=== PATIENT | male | born 1960 | race Hispanic/Latino ===

== ENCOUNTER 2016-07-18 21:39 | Emergency (ER) | payer OTHER ==
[2016-07-18 22:01] VITALS: TEMP 98.7
[2016-07-18 22:03] VITALS: BMI 25.7
--- NOTE | 2016-07-18 22:12 | ED PDOC ---
Arrival/HPI - General Chief Complaint: Respiratory Distress Time Seen by Provider: 07/18/16 22:02 Historian: Patient, EMS - History of Present Illness Narrative History of Present Illness (Text): 07/18/16 21:40 Glenn Kelley is a 56 year old male who presents to the Emergency department brought in by EMS status post respiratory arrest prior to arrival. As per EMS, patient was found lying on the floor unresponsive in the middle of a store aisle. EMS report patient was agonal/cyanotic/pulseless. CPR was commenced and patient subsequently placed on BVM. EMS state patient improved with BVM oxygenation. has a history of substance and was given intranasal Narcan in the field with response. Patient on arrival to the Emergency department is awake, alert but slightly agitated. Patient denies any chest pain, nausea, vomiting, diarrhea, urinary symptoms, headache, dizziness, or any other complaints. Time/Duration: Prior to Arrival Symptom Onset: Sudden Symptom Course: Improving Activities at Onset: Light Context: Other (Pharmacy) Past Medical History - Provider Review Nursing Documentation Reviewed: Yes - Psychiatric Hx Substance Use: (unk) Family/Social History - Physician Review Nursing Documentation Reviewed: Yes Family/Social History: No Known Family HX Smoking Status: unk Hx Alcohol Use: (unk) Hx Substance Use: (unk) Allergies/Home Meds Allergies/Adverse Reactions: Allergies Sulfa (Sulfonamide Antibiotics) Allergy (Verified 07/18/16 22:03) ANGIOEDEMA Review of Systems - Physician Review All systems were reviewed & negative as marked: Yes - Review of Systems Constitutional: Normal Eyes: Normal ENT: Normal Cardiovascular: Normal. absent: Chest Pain Gastrointestinal: Normal. absent: Abdominal Pain, Diarrhea, Nausea, Vomiting Genitourinary Male: Normal. absent: Dysuria, Frequency, Hematuria, Urinary Output Changes Musculoskeletal: Normal. absent: Back Pain, Neck Pain Skin: Normal. absent: Rash Neurological: Normal. absent: Headache, Dizziness Endocrine: Normal Hemo/Lymphatic: Normal Psychiatric: Normal Physical Exam Vital Signs Reviewed: Yes Vital Signs Temp Pulse Resp BP Pulse Ox 07/18/16 23:20 92 H 16 115/66 90 L 07/18/16 21:54 16 94 L 07/18/16 21:52 98.7 F 118 H 16 123/82 94 L Temperature: Afebrile Blood Pressure: Normal Pulse: Regular Respiratory Rate: Normal Appearance: Positive for: Well-Appearing, Non-Toxic, Comfortable Pain Distress: None Mental Status: Positive for: Alert and Oriented X 3 - Systems Exam Head: Present: Atraumatic, Normocephalic Pupils: Present: Pinpoint Extroacular Muscles: Present: EOMI Conjunctiva: Present: Normal Mouth: Present: Moist Mucous Membranes Neck: Present: Normal Range of Motion Respiratory/Chest: Present: Clear to Auscultation, Good Air Exchange. No: Respiratory Distress, Accessory Muscle Use Cardiovascular: Present: Regular Rate and Rhythm, Normal S1, S2. No: Murmurs Abdomen: Present: Normal Bowel Sounds. No: Tenderness, Distention, Peritoneal Signs Upper Extremity: Present: Normal Inspection. No: Cyanosis, Edema Lower Extremity: Present: Normal Inspection. No: Edema Neurological: Present: GCS=15, CN II-XII Intact, Speech Normal Skin: Present: Warm, Dry, Normal Color. No: Rashes Psychiatric: Present: Alert, Oriented x 3, Normal Insight, Normal Concentration , Agitated (Slightly agitated) Medical Decision Making ED Course and Treatment: 07/18/16 21:40 Impression: 56 year old male brought in by EMS s/p respiratory arrest. Pt awake, alert, and slightly agitated on arrival. Plan: -- Chest X-ray -- Labs, cardiac enzymes, alcohol level -- Urinalysis, urine drug screen -- Reassess and disposition Prior Visits: Notes and results from previous visits were reviewed. Progress Notes: Reviewed EKG, sinus tachycardia at 113 bpm. Non-specific ST/T wave changes. 07/18/16 23:15 Reviewed radiology, Chest X-ray shows no acute process. 07/19/16 01:[address] Gonzalez, remote sensing specialist, who is aware and agrees with plan. Accepts pt in to hospitalist service. Pt will go to Telemetry observation for respiratory arrest, alcohol intoxication, and opiate overdose. 07/19/16 01:[address] Fuchs, medical assistant float educational resource center teacher, who is aware and agrees with plan. - Lab Interpretations Lab Results: 07/18/16 22:27 07/18/16 22:27 Lab Results 07/19/16 01:15: pCO2 50 H, pO2 60.0 L, HCO3 24.0, ABG pH 7.29 L, ABG Total CO2 25.5, ABG O2 Saturation 92.4 L, ABG Base Excess -3.1 L, ABG Potassium 4.2, Glucose 93, Lactate 1.3, FiO2 21.0, Sodium 141.0, Chloride 113.0 H, Arterial Blood Potassium 4.2 07/18/16 22:27: Alcohol, Quantitative 161 H 07/18/16 22:27: Salicylates < 1 L, Acetaminophen < 10.0 L 07/18/16 22:27: Sodium 142, Potassium 3.3 L, Chloride 104, Carbon Dioxide 23, Anion Gap 18, BUN 14, Creatinine 0.9, Est GFR ( Amer) > 60, Est GFR (Non- Af Amer) > 60, Random Glucose 144 H, Calcium 8.7, Total Bilirubin 0.8, AST 108 H , ALT 81 H, Alkaline Phosphatase 108, Lactate Dehydrogenase 939 H, Total Creatine Kinase 428 H, CK-MB (CK-2) 2.6, CK-MB (CK-2) % Cancelled, Troponin I < 0.01, Total Protein 8.1, Albumin 4.5, Globulin 3.7, Albumin/Globulin Ratio 1.2 07/18/16 22:27: WBC 15.5 H, RBC 4.23, Hgb 13.5 L, Hct 39.7 L, MCV 93.9, MCH 31.9 , MCHC 34.0, RDW 16.1 H, Plt Count 356, MPV 9.3, Gran % 54.1, Lymph % (Auto) 36.1 H, [place] % (Auto) 8.4 H, Eos % (Auto) 1.1 L, Baso % (Auto) 0.3, Gran # 8.38 H, Lymph # 5.6 H, [place] # 1.3 H, Eos # 0.2, Baso # 0.05 I have reviewed the lab results: Yes - RAD Interpretation Radiology Orders: 07/18/16 22:27 CHEST PORTABLE [RAD] Stat Engineer Operations And Maintenance: ED Physician - EKG Interpretation Interpreted by ED Physician: Yes Type: 12 lead EKG - Medication Orders Current Medication Orders: Multivitamins/Vitamin C 10 ml/Thiamine HCl 100 mg/ Folic Acid 1 mg/ Sodium Chloride 1,011.2 mls @ 1,000 mls/hr IV .[id number] ONE Stop: 07/19/16 02:31 - Scribe Statement The provider has reviewed the documentation as recorded by the Yeseniaibsusanne Craig All medical record entries made by the Yeseniaibsusanne were at my direction and personally dictated by me. I have reviewed the chart and agree that the record accurately reflects my personal performance of the history, physical exam, medical decision making, and the department course for this patient. I have also personally directed, reviewed, and agree with the discharge instructions and disposition. Disposition/Present on Arrival - Present on Arrival Any Indicators Present on Arrival: No History of DVT/PE: No History of Uncontrolled Diabetes: No Urinary Catheter: No History of Decub. Ulcer: No History Surgical Site Infection Following: None - Disposition Have Diagnosis and Disposition been Completed?: Yes Diagnosis: Drug overdose, Respiratory arrest Disposition: HOSPITALIZED Disposition Time: 02:12 Patient Plan: Admission Condition: STABLE
[2016-07-18 23:24] LABS: BASO # 0.05 K/mm3 (0.0-2.0); BASO % 0.3 % (0.0-3.0); EOS # 0.2 (0.0-0.7); EOS % 1.1 % (1.5-5.0); GRAN # 8.38 (1.4-6.5); GRAN % 54.1 % (50.0-68.0); HEMATOCRIT 39.7 % (42.0-52.0); LYMPH # 5.6 (1.2-3.4); LYMPH % 36.1 % (22.0-35.0); MEAN CELL VOLUME 93.9 fL (80.0-105.0); MEAN CORPUSCULAR HEMOGLOBIN 31.9 pg (25.0-35.0); MEAN PLATELET VOLUME 9.3 fl (7.0-11.0); MONO # 1.3 (0.1-0.6); MONO % 8.4 % (1.0-6.0); PLATELET COUNT 356 10^3/uL (120.0-450.0); RED CELL DISTRIBUTION WIDTH 16.1 % (11.5-14.5); WHITE BLOOD COUNT 15.5 10^3/ul (4.5-11.0)
[2016-07-18 23:39] LABS: ALB/GLOB RATIO 1.2 (1.1-1.8); ALKALINE PHOSPHATASE 108 U/L (38-133); ALT/SGPT 81 U/L (7-56); AST/SGOT 108 U/L (15-59); BILIRUBIN,TOTAL 0.8 mg/dL (0.2-1.3); BLOOD UREA NITROGEN 14 mg/dL (7-21); CALCIUM 8.7 mg/dL (8.4-10.5); CARBON DIOXIDE 23 mmol/L (21-33); CHLORIDE 104 mmol/L (98-107); GFR AFRICAN-AMERICAN > 60; GLUCOSE,RANDOM 144 mg/dL (70-110); POTASSIUM 3.3 mmol/L (3.6-5.0); SODIUM 142 mmol/L (132-148); TOTAL PROTEIN 8.1 g/dL (5.8-8.3)
[2016-07-19 00:01] LABS: TROPONIN I < 0.01 ng/mL
[2016-07-19 00:27] LABS: ADD MANUAL DIFF? NO
[2016-07-19] MEDS ORDERED: Multivitamin (MVI) 10 ML, Thiamine 100 MG, Folic Acid 1 MG in Sodium Chloride 0.9% 1,00... IV ONE (01:31)
[2016-07-19 01:33] LABS: ARTERIAL BLOOD GAS PH 7.29 (7.35-7.45)
[2016-07-19] MEDS ORDERED: Albuterol-Ipratrop 3 mg / 0.5 (3 ml) UD IH PRN (02:18)
[2016-07-19 02:29] LABS: MAGNESIUM 2.4 mg/dL (1.7-2.2); PHOSPHOROUS 5.3 mg/dL (2.5-4.5)
--- NOTE | 2016-07-19 02:40 | CP.PCM.HP ---
Addendum entered and electronically signed by Sujey Fuchs DO 07/19/16 02:46: Mg 5.3 Phos 2.4 Continue IVF Will monitor Original Note: <Sujey Fuchs - Last Filed: 07/19/16 02:42> History of Present Illness - History of Present Illness History of Present Illness: Internal medicine H & P for Hospitalist Service- Sujey Fuchs, PGY-1 Pt S & E at bedside. 56M w/PMH sig for Seasonal allergies, hx bronchitis, herniated cervical discs, suicide attempt (11/2015) admitted s/p respiratory arrest due to heroin overdose. Pt reports last thing he remembers is he was going to [place] to get some heroin, [place] 10 bags of [place] Pt does not know how he got to hospital. As per EMS- pt was found in the middle of an aisle in a pharmacy with agonal breathing/unresponsive/cyanotic/pulseless- CPR initiated with rescue breathing. Was given intranasal narcan with response. Pt taken to ED via EMS. Pt reports that he recently lost his gf to heroin; has suicide attempt last November that put him in the hospital for 6 wks. Admits to wt loss of unknown amount, sinus congestion, cough, night sweats (chronic), constipation, paresthesias of B/L LE. Denies N/V/F/C, SOB, CP, abdominal pain, changes in vision, changes in hearing, diarrhea, changes in urination, headache , back pain. PMH: Seasonal allergies, hx bronchitis, herniated cervical discs, suicide attempt (11/2015), GERD, substance abuse PSH: Denies All: Seasonal, sulfa SH: Admits to drinking 1/2 pint of vodka today, prior hx of ETOH abuse - quit 3 yrs ago, admits to tobacco use- 1-1.5 ppd x 40 yrs, admits to heroin abuse- took 10 bags today; girl friend recently of heroin OD; wears reading glasses PMD: [place] Home meds: Wellbutrin, Gabapentin FH: Mother's side with various cancers Present on Admission - Present on Admission Any Indicators Present on Admission: No History of DVT/PE: No History of Uncontrolled Diabetes: No Urinary Catheter: No Decubitus Ulcer Present: No Review of Systems - Review of Systems All systems: reviewed and no additional remarkable complaints except - Constitutional Constitutional: Night Sweats. absent: Chills, Fever, Headache - EENT Eyes: absent: Blurred Vision, Change in Vision Ears: absent: Decreased Hearing Nose/Mouth/Throat: Post Nasal Drip, Sinus Pressure. absent: Nasal Congestion, Sore Throat - Cardiovascular Cardiovascular: absent: Chest Pain, Leg Edema, Palpitations, Pedal Edema - Respiratory Respiratory: Cough, Wheezing (occasional- due to allergies) - Gastrointestinal Gastrointestinal: Constipation. absent: Abdominal Pain, Diarrhea, Nausea, Vomiting - Genitourinary Genitourinary: absent: Change in Urinary Stream, Dysuria, Urinary Frequency - Musculoskeletal Musculoskeletal: Neck Pain, Numbness (B/L LE), Tingling (B/L LE) - Integumentary Integumentary: absent: Rash - Psychiatric Psychiatric: Suicidal Ideation Past Patient History - Past Social History Smoking Status: unk - PSYCHIATRIC Hx Substance Use: (unk) Meds Allergies/Adverse Reactions: Allergies Allergy/AdvReac Type Severity Reaction Status Date / Time Sulfa (Sulfonamide Allergy ANGIOEDEMA Verified 07/18/16 22:03 Antibiotics) Physical Exam - Constitutional Appears: Non-toxic, No Acute Distress - Head Exam Head Exam: ATRAUMATIC, NORMAL INSPECTION, NORMOCEPHALIC - Eye Exam Eye Exam: EOMI, Normal appearance, PERRL Pupil Exam: NORMAL ACCOMODATION, PERRL - ENT Exam ENT Exam: Mucous Membranes Dry, Normal Exam - Neck Exam Neck exam: Positive for: Full Rom, Normal Inspection. Negative for: Tenderness - Respiratory Exam Respiratory Exam: Clear to Auscultation Bilateral, NORMAL BREATHING PATTERN. absent: Accessory Muscle Use, Chest Wall Tenderness, Rales, Rhonchi, Wheezes, Respiratory Distress - Cardiovascular Exam Cardiovascular Exam: Tachycardia, +S1, +S2 - GI/Abdominal Exam GI & Abdominal Exam: Normal Bowel Sounds, Soft. absent: Distended, Firm, Guarding, Rigid, Tenderness - Extremities Exam Extremities exam: Positive for: normal inspection. Negative for: tenderness - Neurological Exam Neurological exam: Alert, CN II-XII Intact, Oriented x3 - Psychiatric Exam Psychiatric exam: Normal Affect, Normal Mood - Skin Skin Exam: Dry, Intact, Normal Color, Warm Results - Vital Signs Recent Vital Signs: Last Vital Signs Temp 98.7 F 07/18/16 21:52 Pulse 92 H 07/18/16 23:20 Resp 16 07/18/16 23:20 BP 115/66 07/18/16 23:20 Pulse Ox 90 L 07/18/16 23:20 - Labs Result Diagrams: 07/18/16 22:27 07/18/16 22:27 Labs: Laboratory Results - last 24 hr 07/18/16 07/18/16 07/18/16 22:27 22:27 22:27 WBC 15.5 H RBC 4.23 Hgb 13.5 L Hct 39.7 L MCV 93.9 MCH 31.9 MCHC 34.0 RDW 16.1 H Plt Count 356 MPV 9.3 Gran % 54.1 Lymph % (Auto) 36.1 H [place] % (Auto) 8.4 H Eos % (Auto) 1.1 L Baso % (Auto) 0.3 Gran # 8.38 H Lymph # 5.6 H [place] # 1.3 H Eos # 0.2 Baso # 0.05 pCO2 pO2 HCO3 ABG pH ABG Total CO2 ABG O2 Saturation ABG Base Excess ABG Potassium Glucose Lactate FiO2 Sodium 142 Potassium 3.3 L Chloride 104 Carbon Dioxide 23 Anion Gap 18 BUN 14 Creatinine 0.9 Est GFR ( Amer) > 60 Est GFR (Non-Af Amer) > 60 Random Glucose 144 H Calcium 8.7 Phosphorus Magnesium Total Bilirubin 0.8 AST 108 H ALT 81 H Alkaline Phosphatase 108 Lactate Dehydrogenase 939 H Total Creatine Kinase 428 H CK-MB (CK-2) 2.6 CK-MB (CK-2) % Cancelled Troponin I < 0.01 Total Protein 8.1 Albumin 4.5 Globulin 3.7 Albumin/Globulin Ratio 1.2 Arterial Blood Potassium Salicylates < 1 L Acetaminophen < 10.0 L Alcohol, Quantitative 07/18/16 07/18/16 07/19/16 22:27 22:27 01:15 WBC RBC Hgb Hct MCV MCH MCHC RDW Plt Count MPV Gran % Lymph % (Auto) [place] % (Auto) Eos % (Auto) Baso % (Auto) Gran # Lymph # [place] # Eos # Baso # pCO2 50 H pO2 60.0 L HCO3 24.0 ABG pH 7.29 L ABG Total CO2 25.5 ABG O2 Saturation 92.4 L ABG Base Excess -3.1 L ABG Potassium 4.2 Glucose 93 Lactate 1.3 FiO2 21.0 Sodium 141.0 Potassium Chloride 113.0 H Carbon Dioxide Anion Gap BUN Creatinine Est GFR ( Amer) Est GFR (Non-Af Amer) Random Glucose Calcium Phosphorus 5.3 H Magnesium 2.4 H Total Bilirubin AST ALT Alkaline Phosphatase Lactate Dehydrogenase Total Creatine Kinase CK-MB (CK-2) CK-MB (CK-2) % Troponin I Total Protein Albumin Globulin Albumin/Globulin Ratio Arterial Blood Potassium 4.2 Salicylates Acetaminophen Alcohol, Quantitative 161 H Assessment & Plan - Assessment and Plan (Free Text) Assessment: 56M w/PMH sig for Seasonal allergies, hx bronchitis, herniated cervical discs, suicide attempt (11/2015) admitted s/p respiratory arrest due to heroin overdose. Pt currently stable, will be admitted to tele for monitoring. Plan: s/p respiratory arrest due to heroin overdose O2 sat low 90's O2 PRN - target SaO2> 94% Leukocytosis 15.5- will monitor FU ABG FU UDS FU TSH FU FT4 FU Mg FU phos Trop neg x 1 FU trop at 6am Given NS bolus in ED Duonebs Q6H PRN wheeze Neuro checks Q4H Substance abuse- heroin and ETOH FU UDS ETOH 161 CIWA protocol AST 108 ALT 81 Intranasal narcan given in field Narcan 0.4mg x 1 Started on Methadone 10mg QD Seizure precautions Fall precautions Zofran 4mg Q6H PRN Psych consult- Dr. Pacheco Pre-DM BS 144 FU A1c Hypokalemia k 3.3 Replaced 20mEq KCl Monitor GERD Pepcid GI/DVT ppx Lovenox SCDs Pepcid Dispo Admit to tele VS Q6H Fall precautions Seizure precautions HHD DW attending - Date & Time Date: 07/19/16 Time: 02:15 Decision To Admit - Pt Status Changed To: Hospital Disposition Of: Observation - . Bed Request Type: Telemetry Admitting Physician: Justina Gonzalez <Justina Gonzalez - Last Filed: 07/19/16 23:17> Results - Vital Signs Recent Vital Signs: Last Vital Signs Temp 98.7 F 07/18/16 21:52 Pulse 95 H 07/19/16 02:51 Resp 18 07/19/16 02:51 BP 117/80 07/19/16 02:51 Pulse Ox 94 L 07/19/16 02:51 - Labs Result Diagrams: 07/18/16 22:27 07/18/16 22:27 Labs: Laboratory Results - last 24 hr 07/18/16 07/18/16 07/18/16 22:27 22:27 22:27 WBC 15.5 H RBC 4.23 Hgb 13.5 L Hct 39.7 L MCV 93.9 MCH 31.9 MCHC 34.0 RDW 16.1 H Plt Count 356 MPV 9.3 Gran % 54.1 Lymph % (Auto) 36.1 H [place] % (Auto) 8.4 H Eos % (Auto) 1.1 L Baso % (Auto) 0.3 Gran # 8.38 H Lymph # 5.6 H [place] # 1.3 H Eos # 0.2 Baso # 0.05 pCO2 pO2 HCO3 ABG pH ABG Total CO2 ABG O2 Saturation ABG Base Excess ABG Potassium Glucose Lactate FiO2 Sodium 142 Potassium 3.3 L Chloride 104 Carbon Dioxide 23 Anion Gap 18 BUN 14 Creatinine 0.9 Est GFR ( Amer) > 60 Est GFR (Non-Af Amer) > 60 Random Glucose 144 H Calcium 8.7 Phosphorus Magnesium Total Bilirubin 0.8 AST 108 H ALT 81 H Alkaline Phosphatase 108 Lactate Dehydrogenase 939 H Total Creatine Kinase 428 H CK-MB (CK-2) 2.6 CK-MB (CK-2) % Cancelled Troponin I < 0.01 Total Protein 8.1 Albumin 4.5 Globulin 3.7 Albumin/Globulin Ratio 1.2 Arterial Blood Potassium Salicylates < 1 L Acetaminophen < 10.0 L Alcohol, Quantitative 07/18/16 07/18/16 07/19/16 22:27 22:27 01:15 WBC RBC Hgb Hct MCV MCH MCHC RDW Plt Count MPV Gran % Lymph % (Auto) [place] % (Auto) Eos % (Auto) Baso % (Auto) Gran # Lymph # [place] # Eos # Baso # pCO2 50 H pO2 60.0 L HCO3 24.0 ABG pH 7.29 L ABG Total CO2 25.5 ABG O2 Saturation 92.4 L ABG Base Excess -3.1 L ABG Potassium 4.2 Glucose 93 Lactate 1.3 FiO2 21.0 Sodium 141.0 Potassium Chloride 113.0 H Carbon Dioxide Anion Gap BUN Creatinine Est GFR ( Amer) Est GFR (Non-Af Amer) Random Glucose Calcium Phosphorus 5.3 H Magnesium 2.4 H Total Bilirubin AST ALT Alkaline Phosphatase Lactate Dehydrogenase Total Creatine Kinase CK-MB (CK-2) CK-MB (CK-2) % Troponin I Total Protein Albumin Globulin Albumin/Globulin Ratio Arterial Blood Potassium 4.2 Salicylates Acetaminophen Alcohol, Quantitative 161 H Attending/Attestation - Attestation I have personally seen and examined this patient.: Yes I have fully participated in the care of the patient.: Yes I have reviewed all pertinent clinical information: Yes Notes (Text): 07/19/16 23:16 Patient was seen in the ER when he was in bed # 4 in presence of electromedical equipment technician. Agree with history , physical examination, assessment and plan.
[2016-07-19 02:51] VITALS: BP 117/80; PULSE 95; RESP 18; O2SAT 94
[2016-07-19] MEDS: Naloxone 0.4 mg/ml Inj (Adult) IVP STA ×2 (03:11)
[2016-07-19] MEDS: Potassium Chloride 20 mEq ER Tab PO STA ×2 (03:11)
--- NOTE | 2016-07-19 03:31 | CP.PCM.DIS ---
Provider - Provider Date of Admission: 07/19/16 02:12 Attending physician: Monserrat Brannon MD Primary care physician: Fuad Consults: Psych-Dr. Pacheco Time Spent in preparation of Discharge (in minutes): 45 Hospital Course - Lab Results Lab Results: Most Recent Lab Values WBC 15.5 10^3/ul (4.5-11.0) H 07/18/16 22: RBC 4.23 10^6/uL (3.5-6.1) 07/18/16 22: Hgb 13.5 gm/dL (14.0-18.0) L 07/18/16 22: Hct 39.7 % (42.0-52.0) L 07/18/16: MCV 93.9 fL (80.0-105.0) 07/18/16: MCH 31.9 pg (25.0-35.0) 07/18/16: MCHC 34.0 g/dl (31.0-37.0) 07/18/16: RDW 16.1 % (11.5-14.5) H 07/18/16 22: Plt Count 356 10^3/uL (120.0-450.0) 07/18/16: MPV 9.3 fl (7.0-11.0) 07/18/16: Gran % 54.1 % (50.0-68.0) 07/18/16: Lymph % (Auto) 36.1 % (22.0-35.0) H 07/18/16 22: [place] % (Auto) 8.4 % (1.0-6.0) H 07/18/16 22: Eos % (Auto) 1.1 % (1.5-5.0) L 07/18/16: Baso % (Auto) 0.3 % (0.0-3.0) 07/18/16: Gran # 8.38 (1.4-6.5) H 07/18/16 22: Lymph # 5.6 (1.2-3.4) H 07/18/16 22: [place] # 1.3 (0.1-0.6) H 07/18/16 22:27 Eos # 0.2 (0.0-0.7) 07/18/16 22:27 Baso # 0.05 K/mm3 (0.0-2.0) 07/18/16 22:27 pCO2 50 mm/Hg (35-45) H 07/19/16 01:15 pO2 60.0 mm/Hg (80-100) L 07/19/16 01:15 HCO3 24.0 mmol/L (21-28) 07/19/16 01:15 ABG pH 7.29 (7.35-7.45) L 07/19/16 01:15 ABG Total CO2 25.5 mmol.L (22-28) 07/19/16 01:15 ABG O2 Saturation 92.4 % (95-98) L 07/19/16 01:15 ABG Base Excess -3.1 mmol/L (-2.0-3.0) L 07/19/16 01:15 ABG Potassium 4.2 mmol/L (3.6-5.2) 07/19/16 01:15 Sodium 141.0 mmol/L (132-148) 07/19/16 01:15 Chloride 113.0 mmol/L (98-107) H 07/19/16 01:15 Glucose 93 mg/dl (75-110) 07/19/16 01:15 Lactate 1.3 mmol/L (0.7-2.1) 07/19/16 01:15 FiO2 21.0 % 07/19/16 01:15 Sodium 142 mmol/L (132-148) 07/18/16 22:27 Potassium 3.3 mmol/L (3.6-5.0) L 07/18/16 22:27 Chloride 104 mmol/L (98-107) 07/18/16 22:27 Carbon Dioxide 23 mmol/L (21-33) 07/18/16 22:27 Anion Gap 18 (10-20) 07/18/16 22:27 BUN 14 mg/dL (7-21) 07/18/16 22:27 Creatinine 0.9 mg/dL (0.5-1.4) 07/18/16 22:27 Est GFR ( Amer) > 60 07/18/16 22:27 Est GFR (Non-Af Amer) > 60 07/18/16 22:27 Random Glucose 144 mg/dL (70-110) H 07/18/16 22:27 Calcium 8.7 mg/dL (8.4-10.5) 07/18/16 22:27 Phosphorus 5.3 mg/dL (2.5-4.5) H 07/18/16 22:27 Magnesium 2.4 mg/dL (1.7-2.2) H 07/18/16 22:27 Total Bilirubin 0.8 mg/dL (0.2-1.3) 07/18/16 22:27 AST 108 U/L (15-59) H 07/18/16 22:27 ALT 81 U/L (7-56) H 07/18/16 22:27 Alkaline Phosphatase 108 U/L (38-133) 07/18/16 22:27 Lactate Dehydrogenase 939 U/L (333-699) H 07/18/16 22:27 Total Creatine Kinase 428 U/L (35-230) H 07/18/16 22:27 CK-MB (CK-2) 2.6 ng/mL (0.0-3.6) 07/18/16 22:27 CK-MB (CK-2) % Cancelled 07/18/16 22:27 Troponin I < 0.01 ng/mL 07/18/16 22:27 Total Protein 8.1 g/dL (5.8-8.3) 07/18/16 22:27 Albumin 4.5 g/dL (3.0-4.8) 07/18/16 22: Globulin 3.7 gm/dL 07/18/16 22: Albumin/Globulin Ratio 1.2 (1.1-1.8) 07/18/16 22:27 Arterial Blood Potassium 4.2 mmol/L (3.6-5.2) 07/19/16 01:15 Salicylates < 1 mg/dL (2.0-20.0) L 07/18/16 22:27 Acetaminophen < 10.0 ug/ml (10.0-20.0) L 07/18/16 22:27 Alcohol, Quantitative 161 mg/dL (0-10) H 07/18/16 22:27 - Hospital Course Hospital Course: 56M w/PMH sig for Seasonal allergies, hx bronchitis, herniated cervical discs, suicide attempt (11/2015) admitted s/p respiratory arrest due to heroin overdose. Pt reports last thing he remembers is he was going to [place] to get some heroin, [place]. Pt does not know how he got to hospital. As per EMS- pt was found in the middle of an aisle in a pharmacy with agonal breathing/unresponsive/cyanotic/pulseless- CPR initiated with rescue breathing. Was given intranasal narcan with response. Pt taken to ED via EMS. Pt reports that he recently lost his gf to heroin; has suicide attempt last November that put him in the hospital for 6 wks. Admits to wt loss of unknown amount, sinus congestion, cough, night sweats (chronic), constipation, paresthesias of B/L LE. Denies N/V/F/C, SOB, CP, abdominal pain, changes in vision, changes in hearing, diarrhea, changes in urination, headache , back pain. Pt admitted to tele. While awaiting a bed on the floor, pt requested to sign out AMA. Benefits of staying were discussed with patient, pt continued express desire to sign out AMA. Risks of leaving AMA were discussed with patient, including worsening of condition, recurrence of respiratory arrest, coma and . Pt continued to express desire to sign out AMA. AMA paperwork was completed and submitted to nursing. - Date & Time of H&P Date of H&P: 07/19/16 Time of H&P: 03:31 Discharge Exam - Head Exam Head Exam: ATRAUMATIC, NORMAL INSPECTION, NORMOCEPHALIC - Eye Exam Eye Exam: EOMI, Normal appearance, PERRL Pupil Exam: NORMAL ACCOMODATION, PERRL - ENT Exam ENT Exam: Mucous Membranes Dry, Normal Exam - Neck Exam Neck exam: Full Rom, Normal Inspection - Respiratory Exam Respiratory Exam: Clear to PA & Lateral, NORMAL BREATHING PATTERN, UNREMARKABLE. absent: Rales, Rhonchi, Wheezes, Respiratory Distress - Cardiovascular Exam Cardiovascular Exam: Tachycardia, +S1, +S2 - GI/Abdominal Exam GI & Abdominal Exam: Normal Bowel Sounds, Soft, Unremarkable. absent: Tenderness - Back Exam Back exam: FULL ROM, NORMAL INSPECTION - Neurological Exam Neurological exam: Alert, CN II-XII Intact, Oriented x3 - Psychiatric Exam Psychiatric exam: Normal Affect, Normal Mood - Skin Skin Exam: Dry, Intact, Normal Color, Warm Discharge Plan - Follow Up Plan Condition: UNKNOWN Disposition: AGAINST MEDICAL ADVICE
--- NOTE | 2016-07-19 07:41 | RAD ---
HISTORY: respiratory arrest/drug od COMPARISON: No prior. FINDINGS: LUNGS: No active pulmonary disease. PLEURA: No significant pleural effusion identified, no pneumothorax apparent. Possible bilateral inferolateral pleural parenchymal changes. Those on the right project over old healed right rib fractures CARDIOVASCULAR: Normal. OSSEOUS STRUCTURES: Right posterior old healed rib fractures. Left shoulder mild arthrosis VISUALIZED UPPER ABDOMEN: Normal. OTHER FINDINGS: None. IMPRESSION: No definitive acute/active disease appreciated. Old healed right rib fractures
[2016-07-19] MEDS ORDERED: Enoxaparin 40 mg Syringe SC SCH (10:00)
--- NOTE | 2016-07-19 12:18 | CP.PCM.PCO ---
Physician Communication Note - Physician Communication Note Physician Communication Note: pt was d/c prior this health science writer evaluation
--- NOTE | 2016-07-19 21:50 | CARD ---
APPROVED REPORT EKG Measurement Heart [id number] <Conclusion> Sinus tachycardia Otherwise normal ECG
== END 2016-07-19 03:48 | disposition left against medical advice (07) ==
LOC: ED 21:39 → UNDOADMIN 07-19 02:12 → ERH 07-19 02:12
DX: T40.1X1A Poisoning by heroin, accidental (unintentional), initial encounter (principal); R09.2 Respiratory arrest; Y92.89 Other specified places as the place of occurrence of the external cause
CPT/HCPCS: 71010; 80053; 80320; 80329; 82550; 82553; 82803; 83615; 83735; 84100; 84484; 85025; 93005; 96360; 99285; J3411; J7040

== ENCOUNTER 2016-08-30 22:07 | Emergency (ER) | payer SELFPAY ==
[2016-08-30 22:08] VITALS: BMI 25.7
[2016-08-30 22:28] VITALS: TEMP 97.6
[2016-08-30] MEDS ORDERED: TDAP Vaccine 0.5 mL Syr IM ONE (23:24)
--- NOTE | 2016-08-30 23:30 | ED PDOC ---
Arrival/HPI - General Chief Complaint: Abnormal Skin Integrity Time Seen by Provider: 08/30/16 23:24 Historian: Patient - History of Present Illness Narrative History of Present Illness (Text): 08/31/16 01:19 56-year-old male presents today with laceration to the right anterior lower leg. Patient states he was lifting a toilet tank and it fell and cut his leg. He denies numbness weakness or tingling in the extremity. Incident occurred prior to arrival. Unsure of his last tetanus shot. Denies fevers or chills. No other complaints Time/Duration: Prior to Arrival Symptom Onset: Sudden Symptom Course: Unchanged Quality: Other (no pain) Past Medical History - Provider Review Nursing Documentation Reviewed: Yes - Travel History Have you recently traveled outside [place] w/in the past 3 mons?: No - Tetanus Immunization Tetanus Immunization: Unknown - Cardiac Hx Cardiac Disorders: No - Pulmonary Hx Respiratory Disorders: No - Neurological Hx Neurological Disorder: Yes Other/Comment: Neuropathy - HEENT Hx HEENT Disorder: No - Renal Hx Renal Disorder: No - Endocrine/Metabolic Hx Endocrine Disorders: No - Hematological/Oncological Hx Blood Disorders: No - Integumentary Hx Dermatological Disorder: No - Musculoskeletal/Rheumatological Hx Musculoskeletal Disorders: No - Gastrointestinal Hx Gastrointestinal Disorders: No - Genitourinary/Gynecological Hx Genitourinary Disorders: No - Psychiatric Hx Psychophysiologic Disorder: Yes Hx Depression: Yes Hx Substance Use: No (unk) Family/Social History - Physician Review Nursing Documentation Reviewed: Yes Family/Social History: Unknown Family HX Smoking Status: Heavy Smoker > 10 Cigarettes Daily Hx Alcohol Use: Yes (unk) Frequency of alcohol use: Few days per week Hx Substance Use: No (unk) Allergies/Home Meds Allergies/Adverse Reactions: Allergies Sulfa (Sulfonamide Antibiotics) Allergy (Verified 07/18/16 22:03) ANGIOEDEMA Home Medications: Home Meds Medication Instructions Recorded Confirmed Gabapentin [Neurontin] 400 mg PO TID 07/19/16 07/19/16 buPROPion XL [Wellbutrin XL] 300 mg PO DAILY 07/19/16 07/19/16 Review of Systems - Review of Systems Constitutional: absent: Fatigue, Fevers Respiratory: absent: SOB, Cough Cardiovascular: absent: Chest Pain, Palpitations Gastrointestinal: absent: Abdominal Pain, Nausea, Vomiting Genitourinary Male: absent: Dysuria, Frequency, Hematuria Musculoskeletal: absent: Arthralgias, Back Pain, Neck Pain Skin: Laceration (right lower leg) Physical Exam Vital Signs Reviewed: Yes Vital Signs Temp Pulse Resp BP Pulse Ox 08/30/16 22:28 97.6 F 88 16 102/66 95 Temperature: Afebrile Blood Pressure: Normal Pulse: Regular Respiratory Rate: Normal Appearance: Positive for: Well-Appearing, Non-Toxic, Comfortable Pain Distress: None Mental Status: Positive for: Alert and Oriented X 3 - Systems Exam Head: Present: Atraumatic Respiratory/Chest: Present: Clear to Auscultation Cardiovascular: Present: Regular Rate and Rhythm Lower Extremity: Present: NORMAL PULSES, Normal ROM, Neurovascularly Intact, Capillary Refill < 2 s, Other (right anterior lower leg over tibia; there are 2 superficial linear lacerations; approx 3cm. no active bleeding; non tender. ). No: CALF TENDERNESS, Tenderness, Swelling, Erythema, Deformity Neurological: Present: GCS=15, Speech Normal Skin: Present: Warm, Dry Psychiatric: Present: Alert, Oriented x 3 Medical Decision Making ED Course and Treatment: 08/31/16 01:25 Patient is nontoxic well appearing in no distress. Vital signs are stable. Wound irrigated well with high pressure irrigation Tetanus updated refused medication for pain Laceration repair: 8 sutures placed ( 4 in each laceration) Bacitracin and dressing applied Patient was advised to keep the wound clean and dry, apply bacitracin twice daily. Advised to return immediately if signs of infection develop or return if any other concerning symptoms develop. advised return in 10 days for suture removal Impression: Laceration, leg Motrin every 6 hours as needed for pain keflex; 4 times daily x 7 days. Keep the wound clean and dry, apply bacitracin twice daily Return in 10 days for suture removal Return immediately if signs of infection develop: High fevers, increasing pain, redness, swelling, purulent discharge Followup with primary care physician within the next 2 days Return if any other concerning symptoms develop - Medication Orders Current Medication Orders: Discontinued Medications Lidocaine HCl (Lidocaine 1% (20ml)) Confirm Administered Dose 20 ml .ROUTE .STSiteskin Web Solution- MED ONE Stop: 08/31/16 00:17 Last Admin: 08/31/16 00:41 Dose: Tetanus/Reduced Diphtheria/Acell Pertussis (Boostrix Vaccine Inj) 0.5 ml IM .ONCE ONE Stop: 08/30/16 23:25 Last Admin: 08/30/16 23:53 Dose: 0.5 ml Procedure: Wound Repair - Procedure Procedure: Wound Repair: laceration, right leg - Consent Obtained Consent obtained: Verbal - Performed by Performed by: Mid-level Provider - Indications Indication(s):: Laceration - Location Location:: Right, Anterior, Leg (lower) Shape:: Linear Dimensions Length cm: TWO 3cm linear lacerations - Debris Debris:: None - Irrigated Irrigated with ml of normal saline: copious amounts of NS using high pressure irrigation - Complexity Complexity:: Simple (one layer) - Wound repair method Sutures:: # (laceration #1; four 4.0 nylon interrupted sutures placed. Laceration #2; four 4.0 nylon interrupted sutures placed. ) - Complications Complications: NONE - Patient tolerated procedure Patient Tolerated Procedure:: Well Disposition/Present on Arrival - Present on Arrival Any Indicators Present on Arrival: No History of DVT/PE: No History of Uncontrolled Diabetes: No Urinary Catheter: No History of Decub. Ulcer: No History Surgical Site Infection Following: None - Disposition Have Diagnosis and Disposition been Completed?: Yes Diagnosis: Laceration of leg Disposition: HOME/ ROUTINE Disposition Time: 23:24 Patient Plan: Discharge Patient Problems: Current Active Problems Problem Status Onset Laceration of leg Acute Condition: GOOD Discharge Instructions (ExitCare): Laceration (ED), Care For Your Stitches (ED) Additional Instructions: Motrin every 6 hours as needed for pain Keep the wound clean and dry, apply bacitracin twice daily Return in 10 days for suture removal Return immediately if signs of infection develop: High fevers, increasing pain, redness, swelling, purulent discharge Followup with primary care physician within the next 2 days Return if any other concerning symptoms develop Prescriptions: Cephalexin [Keflex] 500 mg PO QID #28 capsule Referrals: Marcie Sharp MD [Medical Doctor] - [place] up with primary [facility] [place] - Follow up with primary [facility] [Outside] - Follow up with primary
[2016-08-31] MEDS ORDERED: Lidocaine 1% Inj (20ml) ONE (00:16)
[2016-08-31 01:42] VITALS: BP 119/70; PULSE 71; RESP 17; O2SAT 98
== END 2016-08-31 01:45 | disposition home or self-care (01) ==
LOC: ED 22:07
DX: S81.811A Laceration without foreign body, right lower leg, initial encounter (principal); W20.8XXA Other cause of strike by thrown, projected or falling object, initial encounter; Z23 Encounter for immunization; F17.210 Nicotine dependence, cigarettes, uncomplicated

== ENCOUNTER 2017-01-09 21:57 | Emergency (ER) | payer OTHER ==
[2017-01-09 21:58] VITALS: BMI 25.7
[2017-01-09 22:07] VITALS: TEMP 98.1
--- NOTE | 2017-01-09 23:05 | ED PDOC ---
Arrival/HPI - General Chief Complaint: Alcohol Ingestion Time Seen by Provider: 01/09/17 22:15 Historian: Patient - History of Present Illness Narrative History of Present Illness (Text): 01/09/17 23:04 Glenn Kelley is a 56 year old male, whose past medical history includes substance abuse, who presents to the Emergency department brought in by EMS for public intoxication tonight. Patient admits to drinking alcohol tonight. Patient denies any suicidal ideation, homicidal ideation, fever, chills, chest pain, shortness of breath, abdominal pain, nausea, vomiting, diarrhea, urinary symptoms, back pain, neck pain, headache, dizziness, or any other complaints. Time/Duration: Other (tonight) Symptom Onset: Gradual Symptom Course: Unchanged Activities at Onset: Light Context: Home Past Medical History - Provider Review Nursing Documentation Reviewed: Yes - Tetanus Immunization Tetanus Immunization: Unknown - Cardiac Hx Cardiac Disorders: No - Pulmonary Hx Respiratory Disorders: No - Neurological Hx Neurological Disorder: Yes Other/Comment: Neuropathy - HEENT Hx HEENT Disorder: No - Renal Hx Renal Disorder: No - Endocrine/Metabolic Hx Endocrine Disorders: No - Hematological/Oncological Hx Blood Disorders: No - Integumentary Hx Dermatological Disorder: No - Musculoskeletal/Rheumatological Hx Musculoskeletal Disorders: No - Gastrointestinal Hx Gastrointestinal Disorders: No - Genitourinary/Gynecological Hx Genitourinary Disorders: No - Psychiatric Hx Psychophysiologic Disorder: Yes Hx Depression: Yes Hx Substance Use: No (unk) Family/Social History - Physician Review Nursing Documentation Reviewed: Yes Family/Social History: Unknown Family HX Smoking Status: Heavy Smoker > 10 Cigarettes Daily Hx Alcohol Use: Yes (unk) Hx Substance Use: No (unk) Allergies/Home Meds Allergies/Adverse Reactions: Allergies Sulfa (Sulfonamide Antibiotics) Allergy (Verified 07/18/16 22:03) ANGIOEDEMA Home Medications: Home Meds Medication Instructions Recorded Confirmed No Known Home Med 01/09/17 01/09/17 Review of Systems - Physician Review All systems were reviewed & negative as marked: Yes - Review of Systems Constitutional: Normal. absent: Fevers Eyes: Normal ENT: Normal Respiratory: Normal. absent: SOB, Cough Cardiovascular: Normal. absent: Chest Pain Gastrointestinal: Normal. absent: Abdominal Pain, Diarrhea, Nausea, Vomiting Genitourinary Male: Normal. absent: Dysuria, Frequency, Hematuria Musculoskeletal: Normal. absent: Back Pain, Neck Pain Skin: Normal. absent: Rash Neurological: Normal. absent: Headache, Dizziness Endocrine: Normal Hemo/Lymphatic: Normal Psychiatric: Normal. absent: Suicidal Ideation Physical Exam Vital Signs Reviewed: Yes Vital Signs Temp Pulse Resp BP Pulse Ox 01/10/17 05:34 81 18 95 01/10/17 01:38 78 18 95 01/09/17 22:06 98.1 F 88 18 113/62 95 Temperature: Afebrile Blood Pressure: Normal Pulse: Regular Respiratory Rate: Normal Appearance: Positive for: Well-Appearing, Non-Toxic, Comfortable Pain Distress: None Mental Status: Positive for: Alert and Oriented X 3 Finger Stick Blood Glucose: 123 - Systems Exam Head: Present: Atraumatic, Normocephalic Pupils: Present: PERRL Extroacular Muscles: Present: EOMI Conjunctiva: Present: Normal Mouth: Present: Moist Mucous Membranes Neck: Present: Normal Range of Motion Respiratory/Chest: Present: Clear to Auscultation, Good Air Exchange. No: Respiratory Distress, Accessory Muscle Use Cardiovascular: Present: Regular Rate and Rhythm, Normal S1, S2. No: Murmurs Abdomen: Present: Normal Bowel Sounds. No: Tenderness, Distention, Peritoneal Signs Back: Present: Normal Inspection Upper Extremity: Present: Normal Inspection. No: Cyanosis, Edema Lower Extremity: Present: Normal Inspection. No: Edema Neurological: Present: GCS=15, CN II-XII Intact, Speech Normal Skin: Present: Warm, Dry, Normal Color. No: Rashes Psychiatric: Present: Alert, Oriented x 3, Normal Insight, Normal Concentration Medical Decision Making ED Course and Treatment: 01/09/17 23:04 Impression: 56 year old male presents for alcohol intoxication tonight. Differential Diagnosis included but are not limited to: alcohol intoxication Plan: -- Reassess and disposition Prior Visits: Notes and results from previous visits were reviewed. On 08/31/2016, pt was seen in the Emergency department for laceration to right anterior lower leg. Pt had laceration repair performed and was d/c home. Progress Notes: Re-evaluation Time: 06:02 Reassessment Condition: Re-examined, Improved - Scribe Statement The provider has reviewed the documentation as recorded by the Scribe Camelia Craig All medical record entries made by the Scribe were at my direction and personally dictated by me. I have reviewed the chart and agree that the record accurately reflects my personal performance of the history, physical exam, medical decision making, and the department course for this patient. I have also personally directed, reviewed, and agree with the discharge instructions and disposition. Disposition/Present on Arrival - Present on Arrival Any Indicators Present on Arrival: No History of DVT/PE: No History of Uncontrolled Diabetes: No Urinary Catheter: No History of Decub. Ulcer: No History Surgical Site Infection Following: None - Disposition Have Diagnosis and Disposition been Completed?: Yes Diagnosis: Alcohol abuse Disposition: HOME/ ROUTINE Disposition Time: 06:02 Condition: GOOD Discharge Instructions (ExitCare): Abuse of Alcohol (ED) [facility], [Primary Care Provider] - Follow up with primary [facility] [Outside] - Follow up with primary Forms: [employer] ([employer])
[2017-01-10 06:06] VITALS: PULSE 87; RESP 20; O2SAT 97
[2017-01-10 06:10] VITALS: BP 115/65
== END 2017-01-10 06:05 | disposition home or self-care (01) ==
LOC: ED 21:57
DX: F10.129 Alcohol abuse with intoxication, unspecified (principal); F17.210 Nicotine dependence, cigarettes, uncomplicated